=== PATIENT | male | born 1950 | race Caucasian/White ===

== ENCOUNTER 2017-01-31 11:49 | Emergency (ER) | payer OTHER, BC ==
[~2017-01-31] VITALS: Ht 167.6 cm; Wt 72.6 kg
[~2017-01-31 11:49] MED LIST: ACET-1311 PO; ALPR-411 PO; ATEN-173 PO; FEXO1TAB45 PO; FLUT0.0529 NAE; IMD2 PO; LORA10TA51 PO; MECL1TAB42 PO; OMEP20CA9 PO; ZNTT/150 PO
[2017-01-31 11:51] VITALS: TEMP 36.6; Ht 167.6 cm; Wt 72.6 kg
[2017-01-31] MEDS ORDERED: DEXTROSE 5% 100 ML BAG IV ONE (11:51)
[2017-01-31] MEDS ORDERED: VERAPAMIL HCL 2.5 MG/ML 2 ML VIAL IV ONE (11:51)
[2017-01-31] MEDS ORDERED: DOPamine 400MG / 250ML D5W IV ONE (11:51)
[2017-01-31] MEDS ORDERED: HEPARIN SOD (PORCINE) 1000 UNIT/ML 10 ML VIAL IV ONE (12:00)
[2017-01-31 12:03] VITALS: O2SAT 98
[2017-01-31] MEDS ORDERED: HEPARIN SOD 5000 UNIT/0.5 ML CARP ONE (12:05)
[2017-01-31] MEDS ORDERED: ONDANSETRON INJ 2 MG/ML 2 ML VIAL IV STA (12:06)
[2017-01-31] MEDS ORDERED: SODIUM CHLORIDE 0.9% 500ML 500 ML IV STA (12:06)
[2017-01-31 12:10] LABS: BASO % 0.4 %; BASO ABS # 0.04 K/uL (0-0.2); COMPLETE YES; EOS % 0.7 %; HEMATOCRIT 47.3 % (42-52); IG% 0.1 %; LYMPH % 42.6 %; MEAN CELL VOLUME 85.2 fL (80-100); MEAN CORPUSCULAR HEMOGLOBIN 30.3 pg (25-34); MEAN CORPUSCULAR HGB CONC 35.5 g/dl (32-36); MEAN PLATELET VOLUME 9.9 fL (7.4-10.4); MONO % 10.5 %; NEUT % 45.7 %; PLATELET COUNT 252 K/uL (130-400); RED BLOOD COUNT 5.55 M/uL (4.7-6.1); WHITE BLOOD COUNT 8.92 K/uL (4.8-10.8)
--- NOTE | 2017-01-31 12:10 | DIAGNOSTIC IMAGING REPORT ---
CHEST ONE VIEW PORTABLE CLINICAL HISTORY: CHEST PAIN dyspnea COMPARISON STUDY: 02/27/2015 FINDINGS: The bones soft tissues and hemidiaphragms are normal. The cardiomediastinal silhouette is normal. The lungs are clear. The pulmonary vasculature is normal. IMPRESSION: Negative chest. Electronically signed by: Phu Kraus M.D. 01/31/2017 12:09 PM Dictated Date/Time: 01/31/2017 12:08 PM
[2017-01-31] MEDS: MoRPHine SULFATE 4 MG/ML 1 ML CARP\\VIAL IV PRN ×2 (12:11→13:39)
[2017-01-31] MEDS ORDERED: NiCARDipine HCL INJ 2.5 MG/ML 10 ML AMP ONE (12:12)
[2017-01-31] MEDS ORDERED: MIDAZOLAM HCL 1 MG/ML 2ML VIAL ONE (12:12)
[2017-01-31] MEDS ORDERED: MoRPHine SULFATE 4 MG/ML 1 ML CARP\\VIAL ONE (12:13)
[2017-01-31] MEDS ORDERED: NITROGLYCERIN 0.4 MG SL PER TAB CHARGE ONE (12:13)
[2017-01-31] MEDS ORDERED: ONDANSETRON INJ 2 MG/ML 2 ML VIAL ONE (12:13)
[2017-01-31] MEDS ORDERED: FENTANYL CITRATE INJ 50 MCG/1 ML 2 ML VIAL ONE (12:13)
[2017-01-31] MEDS ORDERED: NITROGLYCERIN/D5W 100MCG/ML 20ML SYR ONE (12:13)
[2017-01-31 12:15] VITALS: BP 141/88; PULSE 71
[2017-01-31] MEDS ORDERED: NITROGLYCERIN 0.4 MG SL PER TAB CHARGE SL PRN (12:15)
[2017-01-31 12:16] LABS: ISTAT CREATININE 1.3 mg/dl (0.6-1.3); ISTAT HEMOGLOBIN 16.3 g/dl (14.0-18.0); ISTAT IONIZED CALCIUM 1.12 mmol/l (1.12-1.32)
[2017-01-31 12:24] LABS: INR 1.1 (0.9-1.1); PARTIAL THROMBOPLASTIN RATIO 1.1; PROTHROMBIN TIME (PATIENT) 11.4 SECONDS (9.0-12.0)
[2017-01-31] MEDS ORDERED: RAPID SEQUENCE INDUCTION BAG ONE (12:25)
[2017-01-31] MEDS ORDERED: AMIODARONE 150MG / 100ML D5W ONE (12:26)
[2017-01-31] MEDS ORDERED: AMIODARONE HCL INJ 50 MG/ML 3 ML VIAL ONE (12:27)
[2017-01-31] MEDS ORDERED: AMIODARONE 360MG / 200ML D5W ONE ×2 (12:27→16:08)
[2017-01-31 12:31] LABS: ALT/SGPT 37 U/L (12-78); BLOOD UREA NITROGEN 19 mg/dl (7-18); BUN/CREATININE RATIO 12.4 (10-20); CALCIUM 9.4 mg/dl (8.5-10.1); CARBON DIOXIDE 26 mmol/L (21-32); CHLORIDE 104 mmol/L (98-107); GLUCOSE 98 mg/dl (70-99); POTASSIUM 3.1 mmol/L (3.5-5.1); SODIUM 141 mmol/L (136-145)
[2017-01-31] MEDS ORDERED: NOREPINEPHRINE BITARTRATE 1 MG/ML 4 ML VIAL ONE ×3 (12:39→16:11)
[2017-01-31] MEDS ORDERED: EPTIFIBATIDE 2 MG/ML 10 ML VIAL IV ONE (12:49)
[2017-01-31] MEDS ORDERED: EPTIFIBATIDE 0.75 MG/ML 75MG VIAL IV ONE ×2 (12:49→16:08)
[2017-01-31 12:50] LABS: ALKALINE PHOSPHATASE 63 U/L (45-117); AST/SGOT 20 U/L (15-37); CKMB/CK RATIO 0.9 (0-3.0)
[2017-01-31] MEDS ORDERED: EpINEphrine INJ 1MG/ML AMP 1 MG/ML AMP ONE ×3 (12:59→16:03)
[2017-01-31 13:13] LABS: MAGNESIUM 2.6 mg/dl (1.8-2.4); THYROID STIMULATING HORMONE 2.46 uIu/ml (0.300-4.500)
[2017-01-31] MEDS ORDERED: ATROPINE SULFATE 0.1 MG/ML 10 ML SYR ONE (13:21)
[2017-01-31] MEDS ORDERED: POTASSIUM CHLORIDE 10 MEQ / 100ML WTR IV ONE (13:41)
[2017-01-31 14:19] LABS: HEMATOCRIT 32.3 % (42-52); MEAN CELL VOLUME 85.4 fL (80-100); MEAN CORPUSCULAR HEMOGLOBIN 29.1 pg (25-34); MEAN CORPUSCULAR HGB CONC 34.1 g/dl (32-36); PLATELET COUNT 185 K/uL (130-400); RED BLOOD COUNT 3.78 M/uL (4.7-6.1); WHITE BLOOD COUNT 19.34 K/uL (4.8-10.8)
--- NOTE | 2017-01-31 14:26 | EMERGENCY ROOM VISIT NOTE ---
History Report prepared by Nandini: Jonelle Dubose Under the Supervision of: Dr. Dragan Schmitt D.O. First contact with patient: 11:49 Stated Complaint: cp History of Present Illness The patient is a 66 year old male who presents to the Emergency Room via EMS with complaints of chest pain starting about 50 minutes ago. He also complains of achiness in arms and some shortness of breath. He currently rates a pain intensity of 8/10. As per EMS, he initially had a pain intensity of 9/10. He was given Morphine and Nitro in route to the Emergency Room with some relief. He denies nausea, vomiting, abdominal pain, or any other complaints. He denies any history of heart catheterization. He had a stress test about a year or two ago. Source of History: patient, EMS Onset: about 50 minutes ago Position: chest Symptom Intensity: 8/10 Modifying Factors (Relieving): other (Morphine and Nitro in route to the Emergency Room with some relief) Associated Symptoms: + SOB, No abdominal pain, No nausea, No vomiting Review of Systems See HPI for pertinent positives & negatives. A total of 10 systems reviewed and were otherwise negative. Past Medical & Surgical Medical Problems: (1) Hypertension (2) Migraines (3) Renal calculi (4) Skin cancer Family History Cancer Hypertension Social History Alcohol Use: occasionally Marital Status: Housing Status: lives with significant other Occupation Status: employed Current/Historical Medications Scheduled Atenolol (Tenormin), 12.5 MG PO DAILY Ranitidine (Zantac), 150 MG PO BID Scheduled PRN Acetaminophen (Tylenol), 325 MG PO Q4H PRN for Pain Alprazolam (Xanax), 0.5 MG PO TID PRN for Anxiety Fexofenadine Hcl (Amarilys), 60 MG PO BID PRN for allergies Fluticasone Propionate (Nasal) (Flonase), 2 SPRAYS VALERIA DAILY PRN for Nasal Congestion Loperamide HCl (Loperamide HCl), 2 MG PO DIRECTED PRN for Diarrhea Loratadine (Claritin), 10 MG PO DAILY PRN for ALLERGIC REACTION Meclizine Hcl (Meclizine Hcl), 25 MG PO TID PRN for Dizziness or Vertigo Omeprazole (Prilosec), 20 MG PO DAILY PRN for Indigestion Allergies Coded Allergies: Aspirin (Unverified Allergy, Severe, SWELLING, 06/12/15) Penicillins (Verified Allergy, Severe, swelling, 06/12/15) Physical Exam Vital Signs Date Time Temp Pulse Resp B/P Pulse Ox O2 Delivery O2 Flow Rate FiO2 01/31/17 12:15 71 18 141/88 01/31/17 12:03 67 18 140/81 98 Nasal Cannula 2.0 01/31/17 11:53 86 01/31/17 11:51 36.6 84 20 132/91 98 Room Air Physical Exam GENERAL: Patient is awake, alert, mildly anxious appearing and uncomfortable. EYES: The conjunctivae are clear. The pupils are round and reactive. EARS, NOSE, MOUTH AND THROAT: The nose is without any evidence of any deformity. Mucous membranes are moist tongue is midline NECK: The neck is nontender and supple. RESPIRATORY: Normal respiratory effort is noted there is no evidence of wheezing rhonchi or rales CARDIOVASCULAR: Regular rate and rhythm noted there no murmurs rubs or gallops normal S1 normal S2 GASTROINTESTINAL: The abdomen is soft. Bowel sounds are present in all quadrants. Abdomen is nontender MUSCULOSKELETAL/EXTREMITIES: There is no evidence of gross deformity full range of motion is noted in the hips and shoulders SKIN: There is no obvious evidence of any rash. There are no petechiae, pallor or cyanosis noted. Skin is cool and diaphoretic. No pedal edema noted. NEUROLOGIC: Patient is awake alert and oriented x3 Medical Decision & Procedures ER Provider Diagnostic Interpretation: X-ray results as stated below per interpretation by me and the radiologist. CHEST ONE VIEW PORTABLE CLINICAL HISTORY: CHEST PAIN dyspnea COMPARISON STUDY: 02/27/2015 FINDINGS: The bones soft tissues and hemidiaphragms are normal. The cardiomediastinal silhouette is normal. The lungs are clear. The pulmonary vasculature is normal. IMPRESSION: Negative chest. Electronically signed by: Phu Kraus M.D. 01/31/2017 12:09 PM Dictated Date/Time: 01/31/2017 12:08 PM Laboratory Results 01/31/17 14:00 Red Blood Count 3.78, Mean Corpuscular Volume 85.4, Mean Corpuscular Hemoglobin 29.1, Mean Corpuscular Hemoglobin Concent 34.1, Mean Platelet Volume 10.0, Neutrophils (%) (Auto) 81.7, Lymphocytes (%) (Auto) 14.3, Monocytes (%) (Auto) 2.8, Eosinophils (%) (Auto) 0.2, Basophils (%) (Auto) 0.1, Neutrophils # (Auto) 15.79, Lymphocytes # (Auto) 2.77, Monocytes # (Auto) 0.55, Eosinophils # (Auto) 0.04, Basophils # (Auto) 0.02 01/31/17 14:00 Test 01/31/17 11:40 01/31/17 11:59 01/31/17 12:02 01/31/17 14:00 Prothrombin Time 11.4 SECONDS (9.0-12.0) Prothromb Time International Ratio 1.1 (0.9-1.1) Activated Partial Thromboplast Time 28.3 SECONDS (21.0-31.0) Partial Thromboplastin Ratio 1.1 Total Bilirubin 0.6 mg/dl (0.2-1) Direct Bilirubin < 0.1 mg/dl (0-0.2) Aspartate Amino Transf (AST/SGOT) 20 U/L (15-37) Alanine Aminotransferase (ALT/SGPT) 37 U/L (12-78) Alkaline Phosphatase 63 U/L (45-117) Total Protein 7.8 gm/dl (6.4-8.2) Albumin 4.2 gm/dl (3.4-5.0) Lipase 168 U/L (73-393) Thyroid Stimulating Hormone (TSH) 2.460 uIu/ml (0.300-4.500) Thyroxine (T4) 7.2 mcg/dl (4.5-10.9) Bedside Troponin I 0.060 ng/ml (0-0.045) Bedside Hemoglobin 16.3 g/dl (14.0-18.0) Bedside Hematocrit 48 % (42-52) Bedside Sodium 142 mEq/L (135-144) Bedside Potassium 3.9 mEq/L (3.3-5.0) Bedside Chloride 104 mEq/L (101-112) Bedside Total CO2 24 mEq/l (24-31) Bedside Blood Urea Nitrogen 22 mg/dl (7-18) Bedside Creatinine 1.3 mg/dl (0.6-1.3) Bedside Glucose (other) 108 mg/dl (70-99) Bedside Ionized Calcium (Tracey) 1.12 mmol/l (1.12-1.32) White Blood Count 19.34 K/uL (4.8-10.8) Red Blood Count 3.78 M/uL (4.7-6.1) Hemoglobin 11.0 g/dL (14.0-18.0) Hematocrit 32.3 % (42-52) Mean Corpuscular Volume 85.4 fL (80-100) Mean Corpuscular Hemoglobin 29.1 pg (25-34) Mean Corpuscular Hemoglobin Concent 34.1 g/dl (32-36) Platelet Count 185 K/uL (130-400) Mean Platelet Volume 10.0 fL (7.4-10.4) Neutrophils (%) (Auto) 81.7 % Lymphocytes (%) (Auto) 14.3 % Monocytes (%) (Auto) 2.8 % Eosinophils (%) (Auto) 0.2 % Basophils (%) (Auto) 0.1 % Neutrophils # (Auto) 15.79 K/uL (1.4-6.5) Lymphocytes # (Auto) 2.77 K/uL (1.2-3.4) Monocytes # (Auto) 0.55 K/uL (0.11-0.59) Eosinophils # (Auto) 0.04 K/uL (0-0.5) Basophils # (Auto) 0.02 K/uL (0-0.2) RDW Standard Deviation 40.4 fL (36.4-46.3) RDW Coefficient of Variation 12.9 % (11.5-14.5) Immature Granulocyte % (Auto) 0.9 % Immature Granulocyte # (Auto) 0.17 K/uL (0.00-0.02) Anion Gap 14.0 mmol/L (3-11) Est Creatinine Clear Calc Drug Dose 41.0 ml/min Estimated GFR () 51.3 Estimated GFR (Non- 44.2 BUN/Creatinine Ratio 11.8 (10-20) Lactic Acid Level 8.3 mmol/L (0.4-2.0) Calcium Level 6.7 mg/dl (8.5-10.1) Magnesium Level 2.1 mg/dl (1.8-2.4) Total Creatine Kinase 1117 U/L (39-308) Creatine Kinase MB 52.9 ng/ml (0.5-3.6) Creatine Kinase MB Ratio 4.7 (0-3.0) Troponin I 44.400 ng/ml (0-0.045) Beta-Hydroxybutyric Acid 4.50 mg/dL (0.2-2.81) Test 01/31/17 14:23 Bedside Blood Gas pH (LAB) 7.25 (7.35-7.45) Bedside Blood Gas pCO2 (LAB) 42 mmHg (35-46) Bedside Blood Gas pO2 (LAB) 50 mmHg (80-95) Bedside Blood Gas HCO3 (LAB) 18 meq/L (19-24) Bedside Blood Gas Total CO2 19 mEq/l (24-31) Bedside Blood Gas Base Excess (LAB) -9.0 meq/L (-9-1.8) Bedside Blood Gas O2 Saturation 79.0 % (90-95) Laboratory results per my review. Medications Administered Medications (Trade) Dose Ordered Sig/Ronnie Route Start Time Stop Time Status Last Admin Dose Admin Heparin Sodium (Porcine) (Heparin Sq 5000 Unit/0.5ml) 5,000 unit STK-MED ONCE .ROUTE 01/31/17 12:05 01/31/17 12:06 DC 01/31/17 12:02 5,000 UNIT Morphine Sulfate 4 mg 4 mg Q15M PRN IV 01/31/17 12:15 01/31/17 17:45 DC 01/31/17 12:11 4 MG Sodium Chloride (Nss 500ml) 500 ml @ 999 mls/hr Q31M STAT IV 01/31/17 12:06 01/31/17 12:36 DC 01/31/17 12:06 999 MLS/HR Nitroglycerin (Nitrostat Tab) 0.4 mg STK-MED ONCE .ROUTE 01/31/17 12:13 01/31/17 12:14 DC 01/31/17 12:10 0.4 MG Ondansetron HCl (Zofran Inj) 4 mg STK-MED ONCE .ROUTE 01/31/17 12:13 01/31/17 12:14 DC 01/31/17 12:12 4 MG Amiodarone HCL/ Dextrose (Nexterone / D5w) 150 mg STK-MED ONCE .ROUTE 01/31/17 12:26 01/31/17 12:27 DC 01/31/17 12:26 150 MG Amiodarone HCL/ Dextrose (Nexterone / D5w) 360 mg STK-MED ONCE .ROUTE 01/31/17 12:27 01/31/17 12:28 DC 01/31/17 12:27 360 MG Amiodarone HCl (Cordarone Inj) 300 mg STK-MED ONCE .ROUTE 01/31/17 12:27 01/31/17 12:28 DC 01/31/17 12:27 300 MG Norepinephrine Bitartrate (Levophed Inj) 8 mg STK-MED ONCE .ROUTE 01/31/17 12:39 01/31/17 12:40 DC 01/31/17 12:39 8 MG Eptifibatide (Integrilin Inj) 40 mg STK-MED ONCE IV 01/31/17 12:49 01/31/17 12:50 DC 01/31/17 12:49 40 MG Eptifibatide (Integrilin Inj) 75 mg STK-MED ONCE IV 01/31/17 12:49 01/31/17 12:50 DC 01/31/17 12:49 75 MG Epinephrine HCl (EpINEphrine INJ 1MG/ML AMP/VIAL) 4 mg STK-MED ONCE .ROUTE 01/31/17 12:59 01/31/17 13:00 DC 01/31/17 12:59 4 MG Epinephrine HCl (EpINEphrine HCL 1.5" NDL 0.1 MG/ ML SYR) 2 mg STK-MED ONCE .ROUTE 01/31/17 13:21 01/31/17 13:22 DC 01/31/17 13:19 2 MG Potassium Chloride (Kcl 10 Meq / Wtr) 10 meq STK-MED ONCE IV 01/31/17 13:41 01/31/17 13:42 DC 01/31/17 13:38 10 MEQ Procedure Endotracheal Intubation Indication Cardiogenic shock. The patient was on 100% oxygen via NRB prior to the procedure. Suction, airway equipment, RSI drugs, respiratory equipment, and appropriate personnel were prepared prior to the initiation of the procedure. A time out was taken. Induction was performed with 20 mg Etomidate. After observing the clinical benefit of the medications, the airway was easily visualized utilizing a 4.0 MAC blade. A 8.0 size ETT tube was placed atraumatically to 21 cm using standard technique. The cuff inflated without signs of malfunction. There were bilateral breath sounds, positive colormetric change, no gastric sounds, a good capnography waveform, and post procedure pulse oximetry was 99%. Post intubation sedation and paralysis was deferred to transport team. There were no complications. ECG Indication: chest pain Rate (beats per minute): 83 Rhythm: normal sinus Findings: ST elevation (anterior and high lateral with reciprocal changes in inferior leads), no ectopy, other (Consistent with acute anterior wall [place]) Comparison ECG Date: February 27, 2015 Change: Changes are new when compared to February 27, 2015. Pre-hospital EKG showed normal sinus rhythm, 97 beats per minute, frequent PVC, ST segment elevation in anterior and high lateral leads with reciprocal changes in the inferior leads, consistent with acute [place]. ED Course 1149: The patient was evaluated in room B01. A complete history and physical examination were performed. 1155: I discussed the patient's case with Dr. Lucas, management technician with [facility]. 1157: I discussed the patient's case with Yamilka Haji PA-C with [facility]. 1209: I discussed the patient's case with Dr. Alvarado, management technician with [facility]. 1215: Morphine Sulfate 4 mg IV, Nitroglycerin 0.4 mg SL 1218: Upon reevaluation, the patient is doing well. I discussed results and treatment plan with the patient and his . He verbalizes agreement and understanding. The patient was sent to the Career Development Coordinator/Teacher. 1225: The patient had a cardio-pulmonary arrest in the Career Development Coordinator/Teacher. I performed endotracheal intubation. Refer to procedure note for details. Medical Decision Prior records/ancillary studies reviewed. Triage Nursing notes reviewed. The patient's history was concerning for chest pain. Differential diagnosis: Etiologies such as cardiac ischemia, aortic dissection, pulmonary embolism, pneumonia, pneumothorax, musculoskeletal, infections, pericarditis, myocarditis , esophageal rupture, gastrointestinal, as well as others were entertained. Additional history is obtained from the prehospital personnel. Additional history is obtained from the patient's significant other. The patient is a 66-year-old male who presented to the emergency department for an evaluation of chest discomfort. The patient's prehospital EKG revealed ectopy but also revealed signs of possible myocardial infarction. The patient was made a heart alert upon arrival to the emergency department. The patient was treated with nitroglycerin prior to arrival. He has a severe allergy to aspirin so no aspirin was given. The patient was found have signs of an acute anterior wall [place]. He was evaluated by the student support services director and was taken to the cardiac Career Development Coordinator/Teacher immediately. The patient had an episode of pulseless ventricular tachycardia while in the Career Development Coordinator/Teacher. I was called to the Career Development Coordinator/Teacher to evaluate for possible intubation. The patient did not require intubation at that time. He was defibrillated and returned to sinus rhythm. The procedure continued. The patient had a complicated course after the cardiac catheterization. He required balloon pump and was felt to be in need of transfer to a tertiary center. I was called back to the Career Development Coordinator/Teacher to manage the airway prior to transfer. The patient was intubated in the usual fashion. Please see intubation note. The patient did have a significant amount of dried blood in his oropharynx. The Career Development Coordinator/Teacher team states that he was retching and vomiting. He had what appeared to be a hematoma at the base of the tongue during the intubation procedure however the cords appeared normal. He was intubated without incident. I discussed the patient's laboratory and radiographic studies with him and his significant other. He was agreeable to transfer to the Career Development Coordinator/Teacher. He was evaluated by both student support services director while in the emergency department. The patient's condition was very guarded and critical on transfer to the Career Development Coordinator/Teacher as well as transfer to the tertiary center. Consults Time Called: 1156 Consulting Physician: Yamilka Haji PA-C with [facility] Returned Call: 1157 I discussed the patient's case with Yamilka Haji PA-C with [facility]. Additional Consults: Time Called: 1200 Consulted Physician: Dr. Alvarado management technician with [facility] Returned Call: 1209 Additional Comments: I discussed the patient's case with Dr. Alvarado management technician with [facility]. Time Called: 1150 Consulted Physician: Dr. Lucas management technician with [facility] Returned Call: 1155 Additional Comments: I discussed the patient's case with Dr. Lucas management technician with [facility]. Impression Primary Impression: Acute anterior wall [place] Additional Impressions: Substernal chest pain Ventricular tachycardia Critical Care I have personally spent greater than 40 minutes of critical care time in the direct management of this patient. This includes bedside care, interpretation of diagnostic studies, and testing, discussion with consultants, patient, and family members, and other required patient management activities. This 40 minutes is in excess of all separately billable procedures. Scribe Attestation The scribe's documentation has been prepared under my direction and personally reviewed by me in its entirety. I confirm that the note above accurately reflects all work, treatment, procedures, and medical decision making performed by me. Departure Information Dispostion Other (Career Development Coordinator/Teacher) Problem Qualifiers
[2017-01-31 14:33] LABS: BUN/CREATININE RATIO 11.8 (10-20); CALCIUM 6.7 mg/dl (8.5-10.1); CREATININE 1.6 mg/dl (0.60-1.40); MAGNESIUM 2.1 mg/dl (1.8-2.4); POTASSIUM 2.9 mmol/L (3.5-5.1)
[2017-01-31 14:39] LABS: BASO % 0.1 %; BASO ABS # 0.02 K/uL (0-0.2); COMPLETE YES; EOS % 0.2 %; IG% 0.9 %; LYMPH % 14.3 %; LYMPH ABS # 2.77 K/uL (1.2-3.4); MONO % 2.8 %; NEUT % 81.7 %
[2017-01-31] MEDS ORDERED: PROPOFOL IV EMULSION 10 MG/ML 100 ML VIAL IV ONE (14:40)
[2017-01-31 14:45] LABS: BETA-HYDROXYBUTYRATE 4.5 mg/dL (0.2-2.81); CKMB/CK RATIO 4.7 (0-3.0)
--- NOTE | 2017-01-31 14:59 | DIAGNOSTIC IMAGING REPORT ---
CHEST ONE VIEW PORTABLE CLINICAL HISTORY: 8 dyspnea COMPARISON STUDY: 01/31/2017 12:00 PM FINDINGS: Interval development of diffuse pulmonary edema. Endotracheal tube 3.8 cm above the ursula. Lung bases are considered generally clear. IMPRESSION: 1. Pulmonary edema. 2. Endotracheal tube 3.8 cm with the ursula. Electronically signed by: Phu Kraus M.D. 01/31/2017 2:58 PM Dictated Date/Time: 01/31/2017 2:57 PM
[2017-01-31 15:58] LABS: ISTAT ARTERIAL BLOOD GAS HCO3 18 meq/L (19-24); ISTAT ARTERIAL BLOOD GAS PCO2 42 mmHg (35-46); ISTAT ARTERIAL BLOOD GAS PO2 50 mmHg (80-95); ISTAT ARTERIAL BLOOD GAS pH 7.25 (7.35-7.45); ISTAT CARBON DIOXIDE 19 mEq/l (24-31)
[2017-01-31 15:58] LABS: ISTAT ARTERIAL BLOOD GAS HCO3 19 meq/L (19-24); ISTAT ARTERIAL BLOOD GAS PCO2 50 mmHg (35-46); ISTAT ARTERIAL BLOOD GAS PO2 < 32 mmHg (80-95); ISTAT ARTERIAL BLOOD GAS pH 7.18 (7.35-7.45); ISTAT CARBON DIOXIDE 20 mEq/l (24-31)
[2017-01-31] MEDS ORDERED: SODIUM BICARB 8.4% INJ 50 MEQ/50 ML SYR IV ONE (16:13)
[2017-01-31 17:19] LABS: ISTAT ARTERIAL BLOOD GAS HCO3 16 meq/L (19-24); ISTAT ARTERIAL BLOOD GAS PCO2 38 mmHg (35-46); ISTAT ARTERIAL BLOOD GAS PO2 50 mmHg (80-95); ISTAT ARTERIAL BLOOD GAS pH 7.22 (7.35-7.45); ISTAT CARBON DIOXIDE 17 mEq/l (24-31)
--- NOTE | 2017-01-31 23:45 | Cardiac Catheterization ---
Procedure Note Procedure Date Jan 31, 2017. Pre-Procedure Diagnosis STEMI AUC Score 9 Post-Procedure Diagnosis Severe CAD, Successful PCI, Decreased LV Systolic Function, Normal Intracardiac Pressures Procedure(s) Performed Coronary Angiography, Left Heart Cath, Right Heart Cath, Drug Eluting Stent, IABP, Ultrasound Guided Vascular Access, CPR, Defibrillation, Femoral Artery Angiography Wet Roaster Dr. Alvarado Retail Advertising Account Executive(s) Luly Estimated Blood Loss 30 Medication(s) Aspirin, Epinephrine, Fentanyl, Heparin, Integrilin, Nitroglycerin, Norepinephrine, Lidocaine 1% Summary of Findings Indication: Anterior STEMI/Heart Alert Access: 6Fr Right Femoral Artery, 8Fr Left Femoral Artery, 7Fr Right Femoral Vein Catheters: EBU 3.5 guide; JR4, [place] catheter Findings: LM - Angiographically normal LAD - 100% acute proximal segment occlusion. 40% mid LAD stenosis. 70-80% diffuse, mildly calcified stenosis at take-off of small 2nd diagonal. Circumflex - Non-dominant, mild luminal irregularities. RCA - Dominant, mild luminal irregularities -- PCI -- Antithrombotic therapy: Heparin, Integrilin Procedure: En route from ED to cardiac laborer concrete plant patient had a VT arrest. He received chest compressions, 1mg of epi and 2 defibrillations before ROSC. Code intially called for possible intubation. After ROSC patient was awake, alert and intubation deferred. Patient received 300mg amiodarone and started on infusion. Right femoral artery access obtained under ultrasound guidance. Initially hypotensive, in cardiogenic shock, fluids wide open and started on norepinephrine. LM cannulated with EBU 3.5 guide BMW wire passed across proximal LAD lesion into distal vessel Proximal LAD lesion predilated with 3.0 compliant balloon with re-established OUMAR 2 flow. Persistent hypotension despite escalating norepi and started on epi infusion Additional angiography revealed moderate mid LAD lesion and severe distal LAD stenosis. Distal LAD predilated with 2.0 compliant balloon. Proximal LAD stented with 3.0 x 18 Resolute ALONSO Access obtained in left femoral artery and IABP placed for additional hemodynamic support. Appropriate augmentation at 1:1. [facility] contacted for transfer. Distal LAD lesion stented with 2.25 x 26 Resolute ALONSO Proximal LAD stent post-dilated with 3.0 NC balloon Distal LAD stent post-dilated with 2.25 balloon. Post procedure OUMAR 3 flow, stents well expanded with minimal residual stenosis and no apparent cardiac complications. Arterial Closure: AngioSeal While awaiting transfer, 7Fr sheath placed in right femoral vein. RHC performed , results below (Ao Sat 74%, Pa Sat 24%) . Post swan removal triple lumen catheter placed through 7Fr sheath. Patient became increasing hypoxic and critical care contacted for intubation. Post intubation Life-flight had arrived and patient transferred to recovery unit to prepare for transfer. Summary: 1. Anterior STEMI/Occluded proximal LAD 2. Pre-procedure VT cardiac arrest requiring defibrillation x 2 3. Cardiogenic shock 4. Hypoxic respiratory failure 5. Successful PCI of proximal LAD (3.0 x 18 Resolute) and distal LAD (2.25 x 26 Resolute) with 2 total drug-eluting stents 6. Successful IABP insertion Recommendations: Patient initially to be transferred via air to [facility]. Due to weather patient eventually transferred via ground transport. At time of discharge on norepinephrine, epinephrine, amiodarone, integrilin, NSS and IABP at 1:1 Hemodynamics Rest Ao: 38// Final Ao: 89/59/74 LV: 87/10/18 RA: 8 RV: 33/8 PA: 31//20 PW: 13 NAYLA 3.4 Recommendations PCI without planned CABG Specimens None Radiation Exposure (mGy) 2214 Contrast (mls) 150 Fluids (cc crystalloids) 2700 Drains none Anesthesia succyinylcholine, etomidate for intubation. Procedural Complication(s) None Disposition [facility] ACC Data Cardiac Status Clinical evaluation leading to the procedure CAD Presntation: STEMI STEMI or Non-STEMI: Symptom Onset Date/Time: 11:00 Thrombolytics: No Anginal Classification: CCS IV Heart Failure: No Cardiogenic Shock w/in 24Hrs: Yes Cardiac Arrest w/in 24Hrs: Yes Imaging studies past 6 months: No Stress studies past 6 months: No Standard Exercise Stress Test: No Stress Echocardiogram: No Stress Testing w/SPECT MPI: No Cardiac CTA: No Coronary Anatomy Dominant: Right LAD (% Stenosis): Proximal (100), Mid (40-50), Distal Circumflex (% Stenosis): Normal L PL1 (% Stenosis): Proximal RCA (% Stenosis): Normal Diagnostic Physician's Name: Richard Alvarado MD Status: Emergency Closure Device Percutaneous Entry Location: Femoral Closure Device: Angio-Seal Recommendations: PCI without planned CABG PCI Indication: Immediate PCI for STEMI (12Hrs from SX onset) First Noted: First EKG Subsequent EKG Date/Time: 11:36 Reason For Delay in PCI: Cardiac Arrest &/or Lesion Segment Name: proximal LAD Culprit Artery: Yes Stenosis Prior to Rx (%): 100 Chronic Total Occlusion: No IVUS: No FFR: No Pre-Procedure OUMAR Flow: 0 Previously Treated Lesion: No Lesion Complexity: Non-High/Non-C Lesion Length (mm): 15 Thrombus Present: Yes Bifurcation Lesion: No Guidewire Across Lesion: Yes Guidewire: Stenosis Post-Procedure (%): 0 Post-Procedure OUMAR Flow: 3 Device(s) Deployed: Yes Intraprocedure Events Significant Dissection: No Perforation: No
[2017-02-03 15:32] LABS: ISTAT ARTERIAL BLOOD GAS HCO3 14 meq/L (19-24); ISTAT ARTERIAL BLOOD GAS PCO2 36 mmHg (35-46); ISTAT ARTERIAL BLOOD GAS PO2 67 mmHg (80-95); ISTAT ARTERIAL BLOOD GAS pH 7.21 (7.35-7.45); ISTAT CARBON DIOXIDE 15 mEq/l (24-31)
[2017-02-03 15:34] LABS: ISTAT CREATININE 1.2 mg/dl (0.6-1.3)
[2017-02-03 15:35] LABS: ISTAT HEMOGLOBIN 9.5 g/dl (14.0-18.0); ISTAT IONIZED CALCIUM 0.85 mmol/l (1.12-1.32)
== END 2017-01-31 16:29 | disposition other institution (70) ==
LOC: EDBD 11:49 → C.EDB 11:50
DX: I21.09 ST elevation (STEMI) myocardial infarction involving other coronary artery of anterior wall (principal); I47.2 Ventricular tachycardia; I10 Essential (primary) hypertension; Z87.442 Personal history of urinary calculi; Z85.828 Personal history of other malignant neoplasm of skin; Z79.899 Other long term (current) drug therapy; Z88.0 Allergy status to penicillin; Z88.6 Allergy status to analgesic agent; Z80.9 Family history of malignant neoplasm, unspecified; Z82.49 Family history of ischemic heart disease and other diseases of the circulatory system